=== PATIENT | female | born 1990 | race Caucasian/White ===

== ENCOUNTER → 2018-08-03 | Outpatient (CLI) | payer OTHER ==
[2018-08-03 10:06] LABS: Basophils % (A) 0 %; Eosinophils # (A) 0.1 k/uL (0-0.7); Eosinophils % (A) 1 %; HCT 44.5 % (34.0-46.0); HGB 14.9 gm/dL (11.4-16.0); Lymphocytes # (A) 1.5 k/uL (1.0-4.8); Lymphocytes % (A) 11 %; MCH 29.5 pg (25.0-35.0); MCHC 33.5 g/dL (31.0-37.0); MCV 88.2 fL (80.0-100.0); Mean Platelet Volume 7.3; Monocytes # (A) 0.8 k/uL (0-1.0); Monocytes % (A) 6 %; Neutrophils # (A) 11.1 k/uL (1.3-7.7); Neutrophils % (A) 81 %; Platelet Count 310 k/uL (150-450); RBC 5.05 m/uL (3.80-5.40); WBC 13.7 k/uL (3.8-10.6)
== END | disposition home or self-care (01) ==
LOC: LABPAT 08:42
PROVIDERS: ATTEND Obstetrics & Gynecology
DX: Z01.812 Encounter for preprocedural laboratory examination (principal); N94.6 Dysmenorrhea, unspecified; N92.0 Excessive and frequent menstruation with regular cycle
CPT/HCPCS: 85025

== ENCOUNTER 2018-08-13 07:42 | Day surgery (SDC) | payer BC, OTHER ==
[2018-08-06 10:16] VITALS: BMI 31.2
--- NOTE | 2018-08-09 13:52 | HP ---
HISTORY AND PHYSICAL This is a 28-year-old white female, 2, para 2-0-0-2, status post tubal ligation, who presents with frequent heavy crampy menses. Her periods required nonsteroidal anti-inflammatory use every 6 hours for the total duration of the menstrual flow, 5-7 days in duration. She is requesting NovaSure endometrial ablation for this disorder. REVIEW OF SYSTEMS: Otherwise negative. PAST MEDICAL HISTORY: Significant for high-grade changes on a Pap smear in November of 2006. PAST SURGICAL HISTORY: section 2015, LEEP procedure of the cervix for severe dysplasia in 2016, tubal ligation 2015. CURRENT MEDICATIONS: 1. Lexapro 10 mg daily. 2. Metformin 500 mg twice daily. ALLERGIES: None known. FAMILY HISTORY: Unremarkable, no known history of gynecologic cancers. REPRODUCTIVE HISTORY: Vaginal delivery by myself in 2012, breech presentation, low-transverse section 2015. SOCIAL HISTORY: Patient works at the [employer], she is single, she admits to social alcohol only, denies tobacco or drug use. On examination, this is a pleasant white female who is 5 foot 1 inch, 166 pounds, BMI 31, blood pressure 118/70. HEENT exam reveals no thyromegaly, good dentition, no obvious cervical lymphadenopathy. Breasts are bilaterally symmetric to inspection with no skin dimpling, nipple discharge, axillary adenopathy or other discernible lesions. The chest is clear to auscultation in all leon anteriorly and posteriorly. The cardiac exam reveals regular rate and rhythm with no murmur, click, or rub. The abdomen is soft and nontender, active bowel sounds, no organosplenomegaly. The extremities reveal no edema, good peripheral pulses, normal range of motion throughout. On pelvic examination, the cervix is multiparous, Pap smear is up to date and within normal limits. Uterus is small, anteverted, anteflexed, mobile, nontender. Adnexa are negative to palpation bilaterally. The rectal exam reveals good tone, no obvious lesions. IMPRESSION: Menorrhagia and dysmenorrhea, status post tubal ligation, patient requesting endometrial ablation. PLAN: I have discussed with the patient all risks, benefits, and alternatives of this procedure. The pamphlet has been given for her through review. Other options including hormonal cycling have been discussed and declined. All questions answered. We will proceed with surgery at [facility] on Monday, August 13, 2018. MMODL / IJN: [id number] /
[~2018-08-13 07:42] MED LIST: DEXAMETHASONE SOD PHOSPHATE 10 MG/ML 1 ML VIAL IV ONE; LACTATED RINGERS 1,000 ML IV SCH; LIDOCAINE 1% 20 ML VIAL (10MG/ML) FOR IV START INTRADERMA PRN; MIDAZOLAM 2 MG/2 ML VIAL IV PRN; ONDANSETRON 4 MG/2 ML VIAL IVP ONE; Pre Op ABX Message 1 EACH MISC MISCELLANE ONE; fentaNYL (PF) 50 MCG/ML 2 ML AMP IV PRN
[2018-08-13 08:12] VITALS: TEMP 97.4
[2018-08-13] MEDS ORDERED: PROPOFOL 10 MG/ML 20 ML VIAL IV ONE (08:58)
[2018-08-13] MEDS ORDERED: fentaNYL (PF) 50 MCG/ML 2 ML AMP ONE (08:58)
[2018-08-13] MEDS ORDERED: LIDOCAINE 1% INJ 10MG/ML (20 ML MDV) ONE (08:58)
[2018-08-13] MEDS ORDERED: MIDAZOLAM 2 MG/2 ML VIAL ONE (08:58)
[2018-08-13] MEDS ORDERED: KETOROLAC 30 MG/ML 1 ML VIAL ONE (08:58)
--- NOTE | 2018-08-13 09:30 | P.OP ---
Date of Procedure: 08/13/18 Preoperative Diagnosis: Menorrhagia, dysmenorrhea Postoperative Diagnosis: Same, normal-appearing endometrial cavity Procedure(s) Performed: Hysteroscopy, NovaSure endometrial ablation Anesthesia: IESHA Surgeon: Hollie Garcia Estimated Blood Loss (ml): 25 IV fluids (ml): 600 Urine output (ml): 50 Pathology: none sent Condition: stable Disposition: PACU Description of Procedure: Patient is brought to the operating suite where a general anesthetic is administered without difficulty. She's placed in the dorsal lithotomy position. The appropriate timeout was performed to assure proper patient and procedural identification, urine test negative. The cervix, perineal body, and lower abdominal terrazas are all prepped and draped in the usual sterile fashion. Bladder is drained for approximately 50 mL of clear yellow urine. Examination under anesthesia reveals a small anteverted uterus, negative adnexa bilaterally. Weighted speculum was placed into the vagina. Anterior lip of the cervix is grasped with a double-tooth tenaculum. Uterus sounds to a depth of 6 cm in the anteverted position. Cervix is gently and systematically dilated using Hanks dilators. Hysteroscope was introduced and the cavity is distended with sterile saline. The cavity was evaluated, noted to be devoid of polyps, tumors, septa, or defects. A moderate amount of proliferative-type appearing tissue was noted. Hysteroscope was removed. The NovaSure wand is placed and seated properly. Uterine depth of 5 cm, width of 3.1 centimeters is noted and calibrated. The machine is properly enabled. For 35 seconds with a power of 85 W the procedure is carried out. When the machine turned off, the wand is reduced and removed. Hysteroscope was once again placed and the cavity is noted to be uniformly blanched. All sponge needle and enhancement counts are correct. Cervix is clean and dry. Patient is brought back to the recovery room in very good condition with stable vital signs including 99% O2 saturation, pulse 74, blood pressure 130/61. Toradol is given prior to leaving the operative room.
[2018-08-13] MEDS: HYDROmorphone 1 MG/ML 1 ML SYRINGE IVP ONE ×2 (09:37→09:48)
[2018-08-13] MEDS ORDERED: SODIUM CHLORIDE 0.9% 1,000 ML IV ONE (10:09)
[2018-08-13 10:32] VITALS: RESP 18
[2018-08-13 11:15] VITALS: BP 128/85; PULSE 76
== END 2018-08-13 11:24 | disposition home or self-care (01) ==
LOC: OR 07:42
PROVIDERS: ATTEND Obstetrics & Gynecology
DX: N92.0 Excessive and frequent menstruation with regular cycle (principal); N94.6 Dysmenorrhea, unspecified; Z98.51 Tubal ligation status; Z79.84 Long term (current) use of oral hypoglycemic drugs; Z79.899 Other long term (current) drug therapy; Z79.1 Long term (current) use of non-steroidal anti-inflammatories (NSAID)
CPT/HCPCS: 81025; 58563; J2250; J1100; J2405; J2001; J3010; J1885; J1170; J2704

== ENCOUNTER → 2019-04-09 | Outpatient (CLI) | payer OTHER ==
[2019-04-09 11:14] LABS: Anion Gap 7 mmol/L; Blood Urea Nitrogen 13 mg/dL (7-17); Carbon Dioxide 25 mmol/L (22-30); Chloride 109 mmol/L (98-107); Glucose 83 mg/dL (74-99); Potassium 4.3 mmol/L (3.5-5.1); Sodium 141 mmol/L (137-145)
[2019-04-09 11:26] LABS: Basophils % (A) 1 %; Eosinophils # (A) 0.2 k/uL (0-0.7); Eosinophils % (A) 2 %; HCT 47.1 % (34.0-46.0); HGB 15.4 gm/dL (11.4-16.0); Lymphocytes # (A) 2.2 k/uL (1.0-4.8); Lymphocytes % (A) 28 %; MCH 28.8 pg (25.0-35.0); MCHC 32.6 g/dL (31.0-37.0); MCV 88.2 fL (80.0-100.0); Mean Platelet Volume 8.6; Monocytes # (A) 0.4 k/uL (0-1.0); Monocytes % (A) 4 %; Neutrophils # (A) 4.9 k/uL (1.3-7.7); Neutrophils % (A) 63 %; Platelet Count 318 k/uL (150-450); RBC 5.34 m/uL (3.80-5.40); WBC 7.8 k/uL (3.8-10.6)
== END ==
LOC: LABPAT 10:04
PROVIDERS: ATTEND Obstetrics & Gynecology
DX: Z01.812 Encounter for preprocedural laboratory examination (principal); N94.6 Dysmenorrhea, unspecified; N94.10 Unspecified dyspareunia
CPT/HCPCS: 36415; 80051; 82565; 82947; 84520; 85025; 87086

== ENCOUNTER 2019-04-15 06:47 | Observation (INO) | payer OTHER ==
[~2019-04-15 06:47] MED LIST changes: +HYDROmorphone 0.5 MG/0.5 ML SYRINGE IVP PRN; -LIDOCAINE 1% 20 ML VIAL (10MG/ML) FOR IV START INTRADERMA PRN; -MIDAZOLAM 2 MG/2 ML VIAL IV PRN; -Pre Op ABX Message 1 EACH MISC MISCELLANE ONE; +SCOPOLAMINE 1.5MG/72HR PATCH TRANSDERM ONE; +ceFAZolin IN SWFI 2 GM/20 ML SYRINGE IVP ONE; -fentaNYL (PF) 50 MCG/ML 2 ML AMP IV PRN
[2019-04-15] MEDS ORDERED: LIDOCAINE 1% 20 ML VIAL (10MG/ML) FOR IV START INTRADERMA ONE (07:28)
[2019-04-15] MEDS ORDERED: MIDAZOLAM (PF) 2 MG/2 ML VIAL IVP ONE (08:14)
[2019-04-15] MEDS ORDERED: MIDAZOLAM 2 MG/2 ML VIAL ONE (08:27)
[2019-04-15] MEDS ORDERED: KETOROLAC 30 MG/ML 1 ML VIAL ONE (08:27)
[2019-04-15] MEDS ORDERED: PROPOFOL 10 MG/ML 20 ML VIAL IV ONE (08:27)
[2019-04-15] MEDS ORDERED: GLYCOPYRROLATE 0.2 MG/ML 2 ML VIAL ONE (08:27)
[2019-04-15] MEDS ORDERED: SUCCINYLCHOLINE CHLORIDE 100 MG/5 ML SYR IV ONE (08:27)
[2019-04-15] MEDS ORDERED: LIDOCAINE 1% INJ 10MG/ML (20 ML MDV) ONE (08:27)
[2019-04-15] MEDS ORDERED: fentaNYL (PF) 50 MCG/ML 2 ML AMP ONE (08:27)
[2019-04-15] MEDS ORDERED: NEOSTIGMINE 1 MG/ML 10 ML VIAL ONE (08:27)
[2019-04-15] MEDS ORDERED: ROCURONIUM BROMIDE 10 MG/ML 10 ML VIAL IV ONE (08:27)
[2019-04-15] MEDS ORDERED: HYDROmorphone (PF) 1 MG/ML ONE (08:27)
[2019-04-15] MEDS ORDERED: VASOPRESSIN 20 UNIT/ML 1 ML VIAL IM ONE (08:57)
[2019-04-15] MEDS ORDERED: MORPHINE SULFATE 2 MG/ML SYRINGE IVP PRN (09:10)
[2019-04-15] MEDS ORDERED: NALOXONE 0.4 MG/ML 1 ML VIAL IV PRN (09:10)
[2019-04-15] MEDS ORDERED: SIMETHICONE 80 MG CHEWABLE PO PRN (09:44)
[2019-04-15] MEDS ORDERED: METOCLOPRAMIDE 5 MG/ML 2 ML VIAL IVP PRN (09:44)
[2019-04-15] MEDS ORDERED: ZOLPIDEM 5 MG TAB PO PRN (09:44)
[2019-04-15] MEDS ORDERED: Acetaminophen-Codeine 300-30mg TAB PO PRN (09:44)
[2019-04-15] MEDS ORDERED: diphenhydrAMINE 50 MG/ML 1 ML VIAL IVP PRN (09:44)
[2019-04-15] MEDS ORDERED: IBUPROFEN 600 MG TAB PO PRN (09:44)
--- NOTE | 2019-04-15 09:44 | P.OP ---
Date of Procedure: 04/15/19 Preoperative Diagnosis: Dysmenorrhea, dyspareunia, suspect adenomyosis. Postoperative Diagnosis: Same, normal-appearing ovaries bilaterally. Procedure(s) Performed: Vaginal hysterectomy Anesthesia: IESHA Surgeon: Hollie Garcia [employer] Waste [employer] Specialist #1: Tricia Clemente Estimated Blood Loss (ml): 50 IV fluids (ml): 800 Urine output (ml): 250 Pathology: other (Cervix and uterus) Condition: stable Disposition: PACU Indications for Procedure: Severe dysmenorrhea, dyspareunia, status post ablation. Suspect adenomyosis. Description of Procedure: Patient is brought to the operating suite where a spinal with Duramorph is placed. She is positioned in the dorsal lithotomy position after general anesthetic is also administered. Antibiotics are given. Urine hCG is negative. The appropriate timeout was performed to assure proper patient and procedural identification. Cervix, vagina, perineal bodies are all prepped and draped in the usual sterile fashion. Weighted speculum was placed into the vagina. Bladder is drained for 200 mL of clear yellow urine. Anterior lip of the cervix is grasped with a double-tooth tenaculum. Cervix is injected circumferentially with a dilute Pitressin solution. A moapa blade scalpel is used and the cervix is incised circumferentially with a V positioning at 6:00. A sponge rolled finger is used to sweep the mucosa from the underlying fascial plane. Peritoneum is entered at 6:00, suture tied with 2-0 Vicryl. Weighted speculum was then placed deep into the peritoneal cavity. Uterosacral ligaments are identified, clamped cut and suture ligated. They are held with hemostats laterally for vaginal cuff closure. At all times the vaginal mucosa is swept well from the operative field to avoid bladder and/or ureteral injury. Uterine vasculature is identified, clamped cut and suture ligated. Please note that 0 Vicryl sutures used for the remaining portion of the procedure. 2 additional pedicles are taken superior to the vessels, these are clamped cut and suture ligated. Peritoneum is now entered at 12:00. The uterus is "walked out" posteriorly. Viridiana clamps are used across the final pedicles. The cervix and uterus are sent to pathology for evaluation. 0 Vicryl sutures used to tie, flashed, and retied a pedicles for excellent hemostasis. Sponge stick is then use to visualize the ovaries, both of which appear healthy and normal, and therefore are left in situ per the patient's wishes. The speculum is then replaced to the shallow billed speculum. Peritoneum is closed in a pursestring fashion, with care to avoid any bowel injury. The previously placed uterosacral cardinal ligaments are now brought across to incorporate the opposite ligament as well as vaginal mucosa to close the vaginal cuff. 2 additional [id number] sutures are used for final cuff closure. Hemostasis is excellent. The vagina is packed with one-inch iodophor gauze. The bladder is noted to be draining clear urine, an additional 50 mL's. All sponge needle and enhancement counts are correct at the end of the procedure. Patient is brought back to the recovery room in stable condition with a blood pressure of 102/52, pulse 67, 98% O2 saturation.
[2019-04-15] MEDS ORDERED: LACTATED RINGERS 1,000 ML IV ONE ×2 (10:00)
[2019-04-15] MEDS ORDERED: diphenhydrAMINE 50 MG/ML 1 ML VIAL IVP ONE (10:14)
[2019-04-15 11:34] VITALS: BMI 31.2
[2019-04-15] MEDS: KETOROLAC 30 MG/ML 1 ML VIAL IVP PRN ×2 (16:16→22:10)
[2019-04-16 04:27] VITALS: RESP 16; TEMP 98.2
[2019-04-16] MEDS: KETOROLAC 30 MG/ML 1 ML VIAL IVP PRN (04:44)
--- NOTE | 2019-04-16 06:29 | P.PN ---
Progress Note - Text 04/09 605am 28 yr old female s/p vaginal hystrectomy by Dr Garcia. pt had a general anesthetic with spinal duramorph for post op pain control.She was seen this morning ,vas0, mild pruritis which was treated with benadryl.
--- NOTE | 2019-04-16 07:01 | P.DS ---
Providers Date of admission: 04/15/19 23:28 Expected date of discharge: 04/16/19 Attending physician: Hollie Garcia Primary care physician: [facility] Course: This is a 28-year-old female who presented with severe cyclic dysmenorrhea, and dyspareunia since her endometrial ablation was performed. The presumptive diagnosis was that of adenomyosis, and patient elected to proceed with vaginal hysterectomy. Please see my dictated history and physical for details. She was admitted and underwent vaginal hysterectomy under my care yesterday. She did well intraoperatively. The ovaries appeared normal to inspection and therefore were left in situ per her wishes. Please see my dictated operative note for details. Irwin catheter and vaginal packing were placed. The vaginal packing and Irwin catheter were removed last night per her wishes. She has been up and ambulating, voiding, passing flatus, and feels very well. She has no complaints of pain. She did receive a spinal with Duramorph prior to her surgery. There is no vaginal bleeding. Abdomen is soft and nontender, active bowel sounds. No CVA tenderness. Extremities are negative. Chest is clear. Patient is judged to be in very good condition for discharge home. She will follow-up with me in the office in 2 weeks for her postoperative check. I reminded her no intercourse, tampons or douching. She will use Advil or Aleve [id number], or ibuprofen as needed for pain. She will call me with any vaginal bleeding, any issues with voiding or defecation, with any pain not alleviated by [id number] products, or indeed with any concerns. She is reminded no heavy lifting, I have reviewed restrictions for her activities in detail. Patient Condition at Discharge: Good Plan - Discharge Summary Discharge Rx Participant: No New Discharge Prescriptions: No Action Ibuprofen [Motrin Ib] 400 mg PO Q4HR PRN PRN Reason: Pain Venlafaxine HCl [Effexor] 37.5 mg PO QAM ALPRAZolam [Xanax] 0.25 mg PO HS PRN PRN Reason: Anxiety Discharge Medication List Ibuprofen [Motrin Ib] 400 mg PO Q4HR PRN 08/06/18 [History] ALPRAZolam [Xanax] 0.25 mg PO HS PRN 04/09/19 [History] Venlafaxine HCl [Effexor] 37.5 mg PO QAM 04/09/19 [History] Follow up Appointment(s)/Referral(s): Hollie Garcia MD [STAFF PHYSICIAN] - 2 Weeks
[2019-04-16] MEDS ORDERED: KETOROLAC 30 MG/ML 1 ML VIAL ONE (08:27)
[2019-04-16] MEDS ORDERED: GLYCOPYRROLATE 0.2 MG/ML 2 ML VIAL ONE (08:27)
[2019-04-16] MEDS ORDERED: MIDAZOLAM 2 MG/2 ML VIAL ONE (08:27)
[2019-04-16] MEDS ORDERED: ROCURONIUM BROMIDE 10 MG/ML 10 ML VIAL IV ONE (08:27)
[2019-04-16] MEDS ORDERED: LIDOCAINE 1% INJ 10MG/ML (20 ML MDV) ONE (08:27)
[2019-04-16] MEDS ORDERED: fentaNYL (PF) 50 MCG/ML 2 ML AMP ONE (08:27)
[2019-04-16] MEDS ORDERED: PROPOFOL 10 MG/ML 20 ML VIAL IV ONE (08:27)
[2019-04-16] MEDS ORDERED: SUCCINYLCHOLINE CHLORIDE 100 MG/5 ML SYR IV ONE (08:27)
[2019-04-16] MEDS ORDERED: HYDROmorphone (PF) 1 MG/ML ONE (08:27)
[2019-04-16] MEDS ORDERED: NEOSTIGMINE 1 MG/ML 10 ML VIAL ONE (08:27)
[2019-04-16 08:51] VITALS: BP 125/87; PULSE 82
[2019-04-16] MEDS ORDERED: ACETAMINOPHEN TAB 325 MG TAB PO PRN (09:45)
== END 2019-04-16 09:59 | disposition home or self-care (01) ==
LOC: OR 06:47 → 4FBP 10:05 → OR 23:36
PROVIDERS: ADMIT Obstetrics & Gynecology; ATTEND Obstetrics & Gynecology
DX: N94.6 Dysmenorrhea, unspecified (principal); N94.10 Unspecified dyspareunia; L29.9 Pruritus, unspecified; F41.9 Anxiety disorder, unspecified; Z79.1 Long term (current) use of non-steroidal anti-inflammatories (NSAID); Z79.899 Other long term (current) drug therapy
CPT/HCPCS: 81025; 86850; 86900; 86901; 88307; 94760; 96374

== ENCOUNTER 2020-06-06 20:38 | Emergency (ER) | payer OTHER ==
[2020-06-06 20:49] VITALS: TEMP 98.4
--- NOTE | 2020-06-06 21:18 | XR ---
EXAMINATION TYPE: XR finger RT DATE OF EXAM: 06/06/2020 COMPARISON: NONE HISTORY: Trauma. Pain. TECHNIQUE: 3 views FINDINGS: There is 3 mm intra-articular chip fracture of the medial base of the distal phalanx of the ring finger right hand. There is no dislocation. Joint spaces are normal. IMPRESSION: Intra-articular chip fracture of the ring finger distal phalanx as above.
[2020-06-06] MEDS ORDERED: CEPHALEXIN 500MG STARTER PACK 4 CAP BTL PO STA (21:26)
[2020-06-06] MEDS ORDERED: ALPRAZolam 0.25 MG TAB PO STA (21:29)
[2020-06-06] MEDS ORDERED: LIDOCAINE 1% INJ 10MG/ML (20 ML MDV) SQ ONE (21:29)
[2020-06-06] MEDS ORDERED: BACITRACIN OINT 1 EACH PACKET TOPICAL ONE (21:29)
--- NOTE | 2020-06-06 21:34 | ED ---
Wound/Laceration HPI - General Chief Complaint: Wound/Laceration Stated Complaint: R Ring Finger Injury Time Seen by Provider: 06/06/20 20:45 Source: patient Mode of arrival: ambulatory Limitations: no limitations - History of Present Illness Initial Comments: 30-year-old female patient presents to the emergency department today for evaluation of injury to the right ring finger. Patient states that she was putting a dog out on the chain when the dog took off running causing the chain to wrap around her finger. She states it injured the end of her finger. There is a laceration. She denies numbness or tingling. Denies any significant pain. He denies any other injuries. She is unsure when her last tetanus vaccine was given. Patient denies any headache, neck pain, back pain, chest pain, shortness of breath, dizziness, weakness, abdominal pain, nausea, vomiting, or difficulties with bowel movements or urination. - Related Data Home Medications Medication Instructions Recorded Confirmed Ibuprofen [Motrin Ib] 400 mg PO Q4HR PRN 08/06/18 04/15/19 ALPRAZolam [Xanax] 0.25 mg PO HS PRN 04/09/19 04/15/19 Venlafaxine HCl [Effexor] 37.5 mg PO QAM 04/09/19 04/15/19 Previous Rx's Medication Instructions Recorded Cephalexin [Keflex] 500 mg PO BID #10 cap 06/06/20 Ibuprofen [Motrin] 600 mg PO Q8HR PRN #30 tab 06/06/20 Allergies Allergy/AdvReac Type Severity Reaction Status Date / Time No Known Allergies Allergy Verified 06/06/20 20:46 Review of Systems ROS Statement: Those systems with pertinent positive or pertinent negative responses have been documented in the HPI. ROS Other: All systems not noted in ROS Statement are negative. Past Medical History Past Medical History: No Reported History Additional Past Medical History / Comment(s): ADENOMYOSIS. History of Any Multi-Drug Resistant Organisms: None Reported Past Surgical History: Section, Hysterectomy, Uterine Ablation Additional Past Surgical History / Comment(s): D & C Past Anesthesia/Blood Transfusion Reactions: Postoperative Nausea & Vomiting (PONV) Past Psychological History: Anxiety Smoking Status: Never smoker Past Alcohol Use History: None Reported Past Drug Use History: None Reported - Past Family History Mother History Unknown: Yes Family Medical History: No Reported History General Exam Limitations: no limitations General appearance: alert, in no apparent distress, other (physical well- developed, well-nourished adult female patient in no acute distress. ) Respiratory exam: Present: normal lung sounds bilaterally. Absent: respiratory distress, wheezes, rales, rhonchi, stridor Cardiovascular Exam: Present: regular rate, normal rhythm, normal heart sounds. Absent: systolic murmur, diastolic murmur, rubs, gallop, clicks Extremities exam: Present: full ROM, normal capillary refill, other (There is laceration at the distal tip of the fourth digit there is nail involvement. Skin is otherwise pink, warm, dry. Cap refills less than 3 seconds. Radial pulses 2+ and equal bilaterally.). Absent: normal inspection, tenderness, pedal edema, joint swelling, calf tenderness Neurological exam: Present: alert, oriented X3, CN II-XII intact Psychiatric exam: Present: normal affect, normal mood Skin exam: Present: warm, dry, intact, normal color. Absent: rash Course Vital Signs 06/06/20 20:46 Temperature 98.4 F Pulse Rate 98 Respiratory 16 Rate Blood Pressure 160/104 O2 Sat by Pulse 99 Oximetry Procedures - Laceration Laceration #1 Consent Obtained: verbal consent Indication: laceration Site: hand (Right ring finger) Size (cm): 3 Description: linear Depth: simple, single layer Anesthetic Used: lidocaine 1% Anesthesia Technique: nerve block Amount (mls): 6 Pre-repair: irrigated extensively Type of Sutures: nylon Size of Sutures: 5-0 Number of Sutures: 5 Technique: simple, interrupted Patient Tolerated Procedure: well, no complications Medical Decision Making - Medical Decision Making 30-year-old female patient presents to the emergency department today for evaluation of laceration to the right ring finger. Physical examination did reveal laceration to the pad of the right ring finger that extended around to the lateral nail fold. X-ray was obtained and did show a chip fracture at the proximal interphalangeal joint. Patient was given antibiotics. She refuses tetanus vaccine, we did discuss risk of tetanus and with the disease and heels, she verbalizes understanding and continued to refuse. I did repair the wound as documented. We did discuss wound care and signs or symptoms of infection. She is instructed to return in 7 days to have stitches removed. She is instructed to follow up with clinical studies specialist for further evaluation is as possible. Return parameters were discussed in detail. She verbalizes understanding and agrees with this plan. - Radiology Data Radiology results: report reviewed, image reviewed 3 views of the right ring finger are obtained. Report was reviewed in its entirety. Impression by Dr. Germain shows intra-articular chip fracture of the ring finger distal phalanx of the left. Disposition Clinical Impression: Fracture of finger, distal phalanx, right, open, Laceration of right ring finger Disposition: HOME SELF-CARE Condition: Good Instructions (If sedation given, give patient instructions): Care For Your Stitches (ED), Laceration (ED) Additional Instructions: Keep wound clean and dry. Cleanse twice daily with warm water and antibacterial soap. Keep covered when in public. Use splint for the next 2 weeks. Follow up with orthopedic specialty for further evaluation as soon as possible. Return in 7 days to have the stitches removed. Return to the emergency department immediately for any new, worsening, or concerning symptoms. Prescriptions: Cephalexin [Keflex] 500 mg PO BID #10 cap Ibuprofen [Motrin] 600 mg PO Q8HR PRN #30 tab PRN Reason: Pain Is patient prescribed a controlled substance at d/c from ED?: No Referrals: Pura Cr MD [Primary Care Provider] - 1-2 days Armani Vasquez DO [Doctor of Osteopathic Medicine] - 1-2 days Time of Disposition: 23:00
[2020-06-06] MEDS ORDERED: ACET/COD 300 MG/30 MG STARTER PACK 6 TAB BTL PO STA (23:06)
[2020-06-06 23:11] VITALS: BP 125/79; PULSE 81; RESP 18
== END 2020-06-06 23:10 | disposition home or self-care (01) ==
LOC: EC 20:38
DX: S62.634B Displaced fracture of distal phalanx of right ring finger, initial encounter for open fracture (principal); F41.9 Anxiety disorder, unspecified; Z79.899 Other long term (current) drug therapy; W26.8XXA Contact with other sharp object(s), not elsewhere classified, initial encounter; Y92.009 Unspecified place in unspecified non-institutional (private) residence as the place of occurrence of the external cause
CPT/HCPCS: 73140; 99283; 12002; J2001

== ENCOUNTER 2025-02-18 16:01 | Inpatient (IN) | payer BC, OTHER ==
--- NOTE | 2025-02-18 17:12 | ED ---
General Adult HPI - General Chief complaint: Neuro Symptoms/Deficit Stated complaint: Blurry Vision/Numbness Time Seen by Provider: 02/18/25 16:13 Source: patient Mode of arrival: ambulatory Limitations: no limitations - History of Present Illness Initial comments: Patient is a 34-year-old female with a history of anxiety and depression presenting today for headache. Patient states that last night she began having tingling around her lips and lower face in her fingertips and felt like her vision became blurred. She went to bed and woke up with a migraine-like headache which is described as pressure-like pain around her head and down the back of her neck. She states she does not have a history of migraines. She woke up with a headache this morning so is unsure if it began gradually or suddenly. She states that the neurologic symptoms began to improve until this afternoon around 2:00 when they returned. States she has been taking for 100 mg of ibuprofen every 4 hours last dose was at 2 PM. This has not improved her headache much. She denies history of prior strokes. She denies any chest pain or shortness of breath, endorses nausea but no vomiting. Denies abdominal pain, lower extremity swelling. She has had a prior hysterectomy so no chance of . She is not on blood thinners. - Related Data Home Medications Medication Instructions Recorded Confirmed No Known Home Medications 02/18/25 02/18/25 Allergies Allergy/AdvReac Type Severity Reaction Status Date / Time No Known Allergies Allergy Verified 02/18/25 17:29 Review of Systems ROS Statement: Those systems with pertinent positive or pertinent negative responses have been documented in the HPI. ROS Other: All systems not noted in ROS Statement are negative. Past Medical History Past Medical History: No Reported History Additional Past Medical History / Comment(s): ADENOMYOSIS. History of Any Multi-Drug Resistant Organisms: None Reported Past Surgical History: Section, Hysterectomy, Uterine Ablation Additional Past Surgical History / Comment(s): D & C Past Anesthesia/Blood Transfusion Reactions: Postoperative Nausea & Vomiting (PONV) Past Psychological History: Anxiety Smoking Status: Never smoker Past Alcohol Use History: None Reported Past Drug Use History: None Reported - Past Family History Mother History Unknown: Yes Family Medical History: No Reported History General Exam - General Exam Comments Initial Comments: PE: CONSTITUTIONAL: No apparent distress, well appearing SKIN: Warm, dry, no jaundice, hives or petechiae EYES: Pupils are equally round, extraocular movements intact without nystagmus, clear conjunctiva, non-icteric sclera HENT: Normocephalic, atraumatic, moist mucus membranes, oropharynx clear without exudates NECK: , Full range of motion, normal appearance PULMONARY: Clear to auscultation without wheezes, rhonchi, or rales, normal excursion, no accessory muscle use and no stridor CARDIOVASCULAR: Regular rate, rhythm, normal S1 and S2. No appreciated murmurs, rubs or gallops. Strong radial pulses with intact distal perfusion. No lower extremity edema GASTROINTESTINAL: Soft, active bowel sounds throughout, non-tender, non- distended, no palpable masses, no rebound or guarding. No hepatosplenomegaly GENITOURINARY: MUSCULOSKELETAL: Extremities have no gross deformity, no edema, redness, or swelling. NEUROLOGIC:_a/o x 3, GCS 15, normal mentation and speech. Moves all extremities x 4 without motor or sensory deficit. Cranial nerves: II (visual leon without defects), III, IV and (extraocular movements are intact, pupils are equal with normal reaction to light), V (intact facial sensation and jaw opening), VII (no facial droop), IX and X (normal palate movement, midline uvula, normal voice), XI (symmetrical shoulder shrug and lateral head rotation against resistance), XII (midline tongue protrusion). Motor strength is 5/5 in all extremities. No abnormal movements. Normal muscle tone. Sensation to light touch is intact bilaterally. No cerebellar signs ([id number], byip-nd-ycqd are normal) PSYCHIATRIC:_normal mood and affect, thought process is clear and linear Limitations: no limitations Course Vital Signs 02/18/25 02/18/25 02/18/25 16:05 17:41 20:25 Temperature 98.6 F Pulse Rate 123 H 94 88 Respiratory 22 18 20 Rate Blood Pressure 205/122 195/126 185/111 O2 Sat by Pulse 99 100 99 Oximetry 02/18/25 02/18/25 02/19/25 22:26 23:02 00:27 Temperature 97.8 F Pulse Rate 77 78 80 Respiratory 18 18 16 Rate Blood Pressure 175/111 144/90 141/83 O2 Sat by Pulse 98 96 96 Oximetry 04/16/25 01:29 Temperature 97.4 F L Pulse Rate 81 Respiratory 16 Rate Blood Pressure 136/83 O2 Sat by Pulse 96 Oximetry EKG Findings - EKG Comments: EKG Findings:: Sinus tachycardia rate 102 bpm intervals within acceptable limits, borderline left axis deviation, T wave inversions lead III, aVR, no Q waves present, no significant ST elevations or depressions, no arrhythmia Medical Decision Making - Medical Decision Making Was pt. sent in by a medical professional or institution (, PA, SITE SPECIALIST, urgent care, hospital, or intermediate...) When possible be specific @ -No Did you speak to anyone other than the patient for history (EMS, parent, family, police, friend...)? What history was obtained from this source @ -No Did you review nursing and triage notes (agree or disagree)? Why? @ -[I reviewed, disagree with nursing triage notes, states the patient's symptoms started at 7 PM, her symptoms started at 7 PM last night Were old charts reviewed (outside hosp., previous admission, EMS record, old EKG, old radiological studies, urgent care reports/EKG's, intermediate records)? Report findings @ -Medical records reviewed-of note patient was here for similar presentation, o n 10/18/2015, at that time CT brain showed no acute process and she was discharged home Differential Diagnosis (chest pain, altered mental status, abdominal pain women, abdominal pain men, vaginal bleeding, weakness, fever, dyspnea, syncope, headache, dizziness, GI bleed, back pain, seizure, CVA, palpatations, mental health, musculoskeletal)? @Differential Headache: Migraine, tension, cluster, carbon monoxide, central venous thrombosis, pension karma temporal arteritis, acute closure glaucoma, intercranial hemorrhage, mastoiditis, sinusitis, head injury, this is not meant to be an all-inclusive list. EKG interpreted by me (3pts min.). @ -As above X-rays interpreted by me (1pt min.). Personally reviewed chest x-ray see no evidence of cardiomegaly, consolidations or pleural effusions I agree 3.interpretation CT interpreted by me (1pt min.). I personally viewed CT brain CTA, I see no evidence of hemorrhage, aneurysm, mass effect or other acute process I agree with radiologist interpretation U/S interpreted by me (1pt. min.). @ -None done What testing was considered but not performed or refused? (CT, X-rays, U/S, labs)? Why? @ -None What meds were considered but not given or refused? Why? @ -None Did you discuss the management of the patient with other professionals (professionals i.e. , PA, SITE SPECIALIST, lab, RT, psych nurse, social science analyst, purse seining hand, teacher, chief revenue officer, pillowcase cleaner)? Give summary @ -No Was smoking cessation discussed for >3mins.? @ -No Was critical care preformed (if so, how long)? @Yes 35 minutes Were there social determinants of health that impacted care today? How? (Homelessness, low income, unemployed, alcoholism, drug addiction, transportation, low edu. Level, literacy, decrease access to med. care, assisted, rehab)? @ -No Was there de-escalation of care discussed even if they declined (Discuss DNR or withdrawal of care, Hospice)? @ -No What co-morbidities impacted this encounter? (DM, HTN, Smoking, COPD, CAD, Cancer, CVA, ARF, Chemo, Hep., AIDS, mental health diagnosis, sleep apnea, morbid obesity)? @ -None Was patient admitted / discharged? Hospital course, mention meds given and route, prescriptions, significant lab abnormalities, going to OR and other pertinent info. @ Admission- Patient is a pleasant 34 y/o female PMH anxiety, depression pr esenting for headache with lip tingling, fingertip tingling, began last night. Patient is significantly hypertensive on arrival with BP 205/122, heart rate 123 bpm. On my assessment she has no focal neurologic deficits is well-appearing in no acute distress. NIH of 0. Differential diagnoses above. Will obtain CT brain, CTA head and neck, comprehensive labs, patient be given Reglan, Benadryl, Tylenol and Valium. testing not ordered as patient has had previous hysterectomy. Will continue to monitor blood pressure and treat with antihypertensives if does not improve with pain control. CT brain CTA negative for acute process. Patient is greater than 6 hours out from the onset of her headache however with CTA negative I do not feel LP indicated at this point to further rule out intracranial hemorrhage. Pt states tingling has resolved and HARDY has improved from 8/10 to 4-5/10. Labs overall reassuring. She does remain hypertensive with BP~180/112. Due to persistent symptoms and significant HTN, will treat with IV labetolol and admit. Pt agreeable with POC. Repeat BP 165/112. Add another 10 mg IV labetolol. Case discussed with [facility], kindly accepts pt for admission. Undiagnosed new problem with uncertain prognosis? @ -No Drug Therapy requiring intensive monitoring for toxicity (Heparin, Nitro, Insulin, Cardizem)? @ -No Were any procedures done? @ -No Diagnosis/symptom? @ Cephalgia, Hypertensive Urgency Acute, or Chronic, or Acute on Chronic? @ acute Uncomplicated (without systemic symptoms) or Complicated (systemic symptoms)? @ complicated Side effects of treatment? @ -No Exacerbation, Progression, or Severe Exacerbation? @ -No Poses a threat to life or bodily function? How? (Chest pain, USA, CT, pneumonia, PE, COPD, DKA, ARF, appy, cholecystitis, CVA, Diverticulitis, Homicidal, Suicidal, threat to staff... and all critical care pts) @Possibly if left unaddressed could progress to hypertensive emergency - Lab Data Result diagrams: 02/20/25 05:14 02/18/25 17:25 Lab Results 02/18/25 02/18/25 02/18/25 Range/Units 17:25 17:25 17:25 WBC 10.16 H (4.50-10.00) 10*3/uL RBC 5.52 H (4.10-5.20) 10*6/uL Hgb 16.6 H (12.0-15.0) g/dL Hct 47.2 H (37.2-46.3) % MCV 85.5 (80.0-97.0) fL MCH 30.1 (27.0-32.0) pg MCHC 35.2 (32.0-37.0) g/dL Plt Count 378 (140-440) 10*3/uL MPV 10.7 (9.5-12.2) fL Immature Gran % (Auto) 0.3 % Neutrophils % 63.8 % Lymphocytes % 22.8 % Monocytes % 7.4 % Eosinophils % 4.6 % Basophils % 1.1 % Immature Gran # 0.03 (0.00-0.04) 10*3/uL Neutrophils # 6.48 (1.80-7.70) 10*3/uL Lymphocytes # 2.32 (0.90-5.00) 10*3/uL Monocytes # 0.75 (0.20-1.00) 10*3/uL Eosinophils # 0.47 H (0.04-0.35) 10*3/uL Basophils # 0.11 H (0.00-0.10) 10*3/uL Sodium 137 (137-145) mmol/L Potassium 4.1 (3.5-5.1) mmol/L Chloride 104 (98-107) mmol/L Carbon Dioxide 24 (22-30) mmol/L Anion Gap 9 mmol/L BUN 12 (7-17) mg/dL Creatinine 0.76 (0.52-1.04) mg/dL Est GFR (CKD-EPI)AfAm >90 (>60 ml/min/1.73 sqM) Est GFR (CKD-EPI)NonAf >90 (>60 ml/min/1.73 sqM) Glucose 99 (74-99) mg/dL Calcium 9.6 (8.4-10.2) mg/dL Total Bilirubin 1.3 (0.2-1.3) mg/dL AST 27 (14-36) U/L ALT 32 (4-34) U/L Alkaline Phosphatase 81 (38-126) U/L Troponin I (0.000-0.034) ng/mL NT-Pro-B Natriuret Pep 315 pg/mL Total Protein 7.9 (6.3-8.2) g/dL Albumin 4.5 (3.5-5.0) g/dL Urine Color Colorless Urine Appearance Clear (Clear) Urine pH 6.5 (5.0-8.0) Ur Specific [place] 1.009 (1.001-1.035) Urine Protein Negative (Negative) Urine Glucose (UA) Negative (Negative) Urine Ketones Negative (Negative) Urine Blood Negative (Negative) Urine Nitrite Negative (Negative) Urine Bilirubin Negative (Negative) Urine Urobilinogen <2.0 (<2.0) mg/dL Ur Leukocyte Esterase Negative (Negative) 02/18/25 Range/Units 17:25 WBC (4.50-10.00) 10*3/uL RBC (4.10-5.20) 10*6/uL Hgb (12.0-15.0) g/dL Hct (37.2-46.3) % MCV (80.0-97.0) fL MCH (27.0-32.0) pg MCHC (32.0-37.0) g/dL Plt Count (140-440) 10*3/uL MPV (9.5-12.2) fL Immature Gran % (Auto) % Neutrophils % % Lymphocytes % % Monocytes % % Eosinophils % % Basophils % % Immature Gran # (0.00-0.04) 10*3/uL Neutrophils # (1.80-7.70) 10*3/uL Lymphocytes # (0.90-5.00) 10*3/uL Monocytes # (0.20-1.00) 10*3/uL Eosinophils # (0.04-0.35) 10*3/uL Basophils # (0.00-0.10) 10*3/uL Sodium (137-145) mmol/L Potassium (3.5-5.1) mmol/L Chloride (98-107) mmol/L Carbon Dioxide (22-30) mmol/L Anion Gap mmol/L BUN (7-17) mg/dL Creatinine (0.52-1.04) mg/dL Est GFR (CKD-EPI)AfAm (>60 ml/min/1.73 sqM) Est GFR (CKD-EPI)NonAf (>60 ml/min/1.73 sqM) Glucose (74-99) mg/dL Calcium (8.4-10.2) mg/dL Total Bilirubin (0.2-1.3) mg/dL AST (14-36) U/L ALT (4-34) U/L Alkaline Phosphatase (38-126) U/L Troponin I <0.012 (0.000-0.034) ng/mL NT-Pro-B Natriuret Pep pg/mL Total Protein (6.3-8.2) g/dL Albumin (3.5-5.0) g/dL Urine Color Urine Appearance (Clear) Urine pH (5.0-8.0) Ur Specific [place] (1.001-1.035) Urine Protein (Negative) Urine Glucose (UA) (Negative) Urine Ketones (Negative) Urine Blood (Negative) Urine Nitrite (Negative) Urine Bilirubin (Negative) Urine Urobilinogen (<2.0) mg/dL Ur Leukocyte Esterase (Negative) Disposition Clinical Impression: Cephalalgia, Hypertensive urgency Disposition: ADMITTED IP TO THIS HOSP Condition: Stable
[2025-02-18] MEDS: SODIUM CHLORIDE 0.9% 500 ML 500 ML IV STA (17:26)
[2025-02-18] MEDS: diphenhydrAMINE 50 MG/ML 1 ML VIAL IVP STA (17:31)
[2025-02-18] MEDS: METOCLOPRAMIDE 5 MG/ML 2 ML VIAL IVP STA (17:33)
[2025-02-18] MEDS: MAGNESIUM SULFATE-D5W PMX 1 GM in DEXTROSE/WATER 1 100ML.BAG IVPB ONE (17:36)
[2025-02-18] MEDS: ACETAMINOPHEN TAB 500 MG TAB PO STA (17:38)
[2025-02-18 17:50] LABS: Basophils # (A) 0.11 10*3/uL (0.00-0.10); Basophils % (A) 1.1 %; Eosinophils # (A) 0.47 10*3/uL (0.04-0.35); Eosinophils % (A) 4.6 %; HCT 47.2 % (37.2-46.3); HGB 16.6 g/dL (12.0-15.0); Lymphocytes # (A) 2.32 10*3/uL (0.90-5.00); Lymphocytes % (A) 22.8 %; MCH 30.1 pg (27.0-32.0); MCHC 35.2 g/dL (32.0-37.0); MCV 85.5 fL (80.0-97.0); Mean Platelet Volume 10.7 fL (9.5-12.2); Monocytes # (A) 0.75 10*3/uL (0.20-1.00); Monocytes % (A) 7.4 %; Neutrophils # (A) 6.48 10*3/uL (1.80-7.70); Neutrophils % (A) 63.8 %; Platelet Count 378 10*3/uL (140-440); RBC 5.52 10*6/uL (4.10-5.20); RDW 12.4 % (11.5-14.5); WBC 10.16 10*3/uL (4.50-10.00)
[2025-02-18 17:57] LABS: Appearance,Urine Clear (Clear); Bilirubin,Urine Negative (Negative); Blood,Urine Negative (Negative); Color,Urine Colorless; Glucose,Urine (UA) Negative (Negative); Ketones,Urine Negative (Negative); Leukocyte Esterase,Urine Negative (Negative); Nitrite,Urine Negative (Negative); PH, Urine 6.5 (5.0-8.0); Protein,Urine Negative (Negative); Specific Gravity,Urine 1.009 (1.001-1.035); Urobilinogen,Urine <2.0 mg/dL (<2.0)
[2025-02-18 18:13] LABS: ALT 32 U/L (4-34); AST 27 U/L (14-36); African American GFR (CKD) >90 (>60 ml/min/1.73 sqM); Albumin 4.5 g/dL (3.5-5.0); Alkaline Phosphatase 81 U/L (38-126); Anion Gap 9 mmol/L; Blood Urea Nitrogen 12 mg/dL (7-17); Calcium 9.6 mg/dL (8.4-10.2); Carbon Dioxide 24 mmol/L (22-30); Chloride 104 mmol/L (98-107); Glucose 99 mg/dL (74-99); Non-African American GFR(CKD) >90 (>60 ml/min/1.73 sqM); Potassium 4.1 mmol/L (3.5-5.1); Sodium 137 mmol/L (137-145); Total Bilirubin 1.3 mg/dL (0.2-1.3); Total Protein 7.9 g/dL (6.3-8.2)
[2025-02-18 18:21] LABS: NT-Pro-B-Type Natriuretic Pept 315 pg/mL
--- NOTE | 2025-02-18 18:24 | CT ---
EXAMINATION TYPE: CT brain wo con DATE OF EXAM: 02/18/2025 6:03 PM COMPARISON: Prior CT study dated 11/04/2015.. CLINICAL INDICATION: Female, 34 years old with history of Headache, Headache, lips tingling, neck blake n. TECHNIQUE: Brain: Axial CT images of the brain were obtained with coronal and sagittal reformats created and rev iewed. Contrast used: None. Oral contrast used: None. CT DLP: 999.4 mGycm, Automated exposure control for dose reduction was used. FINDINGS: Brain: Extra-axial spaces: No abnormal extra-axial fluid collections. Ventricular system: Within normal limits Cerebral parenchyma: No acute intraparenchymal hemorrhage or mass effect. The wahl-white junction is well differentiated. Cerebellum: Unremarkable. Mass effect: No evidence of midline shift. Intracranial vasculature: unremarkable Soft tissues: Normal. Calvarium/osseous structures: No depressed skull fracture. Paranasal sinuses and mastoid air cells: Mild scattered paranasal sinus disease. Visualized orbits: Orbital contents are intact. IMPRESSION: No acute intracranial process. [facility], , 02/18/2025 6:22 PM
--- NOTE | 2025-02-18 18:30 | CT ---
EXAMINATION TYPE: CT angio head neck DATE OF EXAM: 02/18/2025 6:18 PM COMPARISON: None.. CLINICAL INDICATION: Female, 34 years old with history of Headache, lips tingling, neck pain; PHH, He adache, lips tingling, neck pain TECHNIQUE: Axially acquired helical CT angiogram of the head and neck was obtained with contrast. Axi al images are supplemented with 3D reconstructions and MIP images which were post-processed at an in dependent workstation. NASCET criteria used. Contrast used:65 ml mL of Isovue 370 with IV Contrast, Oral contrast used: None. CT DLP: 503.8 mGycm, Automated exposure control for dose reduction was used. FINDINGS: CTA HEAD: No evidence of acute intracranial hemorrhage, mass effect, or midline shift. The ventricles, sulci, a nd cisterns are unremarkable. Vertebral arteries: The vertebral arteries are patent. Vertebral artery dominance: Codominant Basilar artery: The basilar artery is intact. The basilar artery bifurcation is normal. Internal Carotid arteries: The cervical, petrous, cavernous and supraclinoid segments are normal. BRITT: Patent with no evidence of aneurysm. ACOM: Present without evidence of aneurysm. MCA: Patent with no evidence of aneurysm. SORTING MACHINE ATTENDANT: Patent with no evidence of aneurysm. PCOM: Hypoplastic bilaterally. Dural sinuses: Patent. CTA NECK: Right Carotid System: The common carotid artery and external carotid artery are patent. The carotid bifurcation demonstrate s no evidence of hemodynamically significant stenosis. The remaining portions of the internal carotid artery demonstrate normal size without significant narrowing. Left Carotid System: The common carotid artery and external carotid artery are patent. The carotid bifurcation demonstrate s no evidence of hemodynamically significant stenosis. The remaining portions of the internal carotid artery demonstrate normal size without significant narrowing. Vertebral arteries are patent without evidence hemodynamically significant stenosis. There is a three-vessel aortic arch. The origins of the great vessels are patent. No evidence of hemo dynamically significant stenosis. Upper thorax: IMPRESSION: 1. No evidence of dissection of the cervical internal carotid arteries or vertebral arteries. 2. No any evidence of significant stenosis at the carotid bifurcations. 3. No evidence of intracranial high-grade stenosis or intracranial aneurysm. *Consider MRI for further evaluation if there is continued clinical concern for acute ischemia. [facility], , 02/18/2025 6:28 PM
[2025-02-18] MEDS: KETOROLAC 15 MG/ML 1 ML VIAL IVP STA (18:57)
[2025-02-18] MEDS: SODIUM CHLORIDE 0.9% 1,000 ML IV ONE (18:58)
[2025-02-18] MEDS: LABETALOL 5 MG/ML VIAL MDV IVP STA ×2 (20:20→21:17)
[2025-02-18] MEDS: MORPHINE SULFATE 2 MG/ML SYRINGE IVP STA (21:16)
[2025-02-18] MEDS: ONDANSETRON 4 MG/2 ML VIAL IVP STA (21:16)
[2025-02-18] MEDS ORDERED: NALOXONE 0.4 MG/ML 1 ML VIAL IV PRN (21:37)
[2025-02-18] MEDS ORDERED: CALCIUM CARBONATE 500 MG CHEWABLE PO PRN (21:37)
[2025-02-18] MEDS ORDERED: MORPHINE SULFATE 4 MG/ML SYRINGE IV PRN (21:37)
[2025-02-18] MEDS ORDERED: MAG HYDROX/AL HYDROX/SIMETH 30 ML CUP PO PRN (21:37)
[2025-02-18] MEDS: SODIUM CHLORIDE 0.9% 1,000 ML IV SCH (21:50)
[2025-02-19] MEDS: hydrALAZINE HCL 20 MG/ML 1 ML VIAL IVP PRN (02:45)
[2025-02-19] MEDS: ACETAMINOPHEN TAB 325 MG TAB PO PRN (05:49)
[2025-02-19 08:48] LABS: T4, Free (Free Thyroxine) 2.03 ng/dL (0.78-2.19)
[2025-02-19] MEDS: LOSARTAN 25 MG TAB PO SCH (08:48)
[2025-02-19] MEDS: FAMOTIDINE 20 MG TAB PO SCH (08:48)
[2025-02-19] MEDS: hydroCHLOROthiazide 25 MG TAB PO SCH (12:58)
--- NOTE | 2025-02-19 14:30 | XR ---
EXAMINATION TYPE: XR chest 2V DATE OF EXAM: 02/19/2025 1:31 PM COMPARISON: None CLINICAL INDICATION: Female, 34 years old with history of Hypertensive urgency, , TECHNIQUE: Frontal and lateral views FINDINGS: The cardiomediastinal silhouette, aorta, and pulmonary vasculature are within normal limits. Lungs an d pleural spaces are clear. IMPRESSION: No acute cardiopulmonary process. [facility], Workstation: [facility], 02/19/2025 2:28 PM
--- NOTE | 2025-02-19 15:04 | P.HPIM ---
History of Present Illness H&P Date: 02/19/25 This is a pleasant 34-year-old female with medical history significant for adenomyosis, hysterectomy 5 years ago. Anxiety/never smoker. Patient denies any alcohol or drug use. Patient comes into the hospital after reporting an onset of acute blurry vision since Monday evening at 7 PM. She states that she was seeing blurry vision as well as spots. This progressed into having numbness in her tongue mouth and her thumb and index finger of her bilateral hands. She is not having any focal logical deficits and denies any swallowing difficulties. She does not have any chest pain chest palpitations or shortness of breath. She does not have any history of stroke or atrial fibrillation in the past. she was having photophobia decided to go lay down and go to sleep when she woke she states that she had a headache of 10 out of 10 reported as a migraine and a throbbing sensation in the frontal lobe. This was Monday. She tried [id number] Motrin without any relief of her symptoms. She presented to the ER for further evaluation. Brain CT on admission reveals no acute intrac ranial process. A CT angiography reveals no evidence of dissection of the cervical internal carotid arteries or vertebral arteries. There is no any evidence of significant stenosis at the carotid bifurcations. No evidence of intracranial high-grade stenosis or intracranial aneurysm. An EKG reveals sinus tachycardia heart rate of [address] or T wave changes. While in the ER patient received labetalol x 2 doses. Valium IV, IV Benadryl. Patient also received IV Zofran as well as a 2 L normal saline fluid bolus. She was given a dose of IV hydralazine as well. Her blood pressure on admission was found to be 205/122. Patient was admitted for hypertensive urgency. She was s tarted on losartan 25 mg daily. She did not have much improvement in her blood pressure got down to 171/101. She then was given a dose of oral hydrochlorothiazide. She remains in normal sinus mechanism however her heart rate is going up into the 110s. Blood pressure is 174/104. REVIEW OF SYSTEMS: CONSTITUTIONAL: No fever, no malaise, no fatigue. HEENT: No recent visual problems or hearing problems. Denied any sore throat. CARDIOVASCULAR: No chest pain, orthopnea, PND, no palpitations, no syncope. PULMONARY: No shortness of breath, no cough, no hemoptysis. GASTROINTESTINAL: No diarrhea, no nausea, no vomiting, no abdominal pain. NEUROLOGICAL: no weakness, no numbness. Reports migraine HEMATOLOGICAL: Denies any bleeding or petechiae. GENITOURINARY: Denies any burning micturition, frequency, or urgency. MUSCULOSKELETAL/RHEUMATOLOGICAL: Denies any joint pain, swelling, or any muscle pain. ENDOCRINE: Denies any polyuria or polydipsia. The rest of the 14-point review of systems is negative. PHYSICAL EXAMINATION: GENERAL: The patient is alert and oriented x3, not in any acute distress. Well developed, well nourished. HEENT: Pupils are round and equally reacting to light. EOMI. No scleral icterus. No conjunctival pallor. Normocephalic, atraumatic. No pharyngeal erythema. No thyromegaly. CARDIOVASCULAR: S1 and S2 present. No murmurs, rubs, or gallops. PULMONARY: Chest is clear to auscultation, no wheezing or crackles. ABDOMEN: Soft, nontender, nondistended, normoactive bowel sounds. No palpable organomegaly. MUSCULOSKELETAL: No joint swelling or deformity. EXTREMITIES: No cyanosis, clubbing, or pedal edema. NEUROLOGICAL: Gross neurological examination did not reveal any focal deficits. SKIN: No rashes. Assessment and plan Hypertensive urgency on admission Migraine headache due to the elevated blood pressure Paresthesias likely related to the hypertensive urgency Leukocytosis reactive Subclinical hypothyroidism will repeat on an outpatient basis Obesity GI prophylaxis Full code Plan Patient received a 25 mg dose of losartan earlier this morning we will increase it up to 50 mg daily and give a second dose of losartan this afternoon Patient also received a 25 mg dose of oral hydrochlorothiazide Continue cardiac telemetry Check a chest x-ray Continue pain medication for the migraine IV Toradol has been added Antiemetics as needed The impression and plan of care has been dictated by Kathi Murrell Nurse Practitioner as directed. Dr. Leilani MD I have performed a history and physical examination and medical decision making of this patient, discussed the same with the dictator, and agree with the dictators assessment and plan as written, documented as a scribe. Based on total visit time, I have performed more than 50% of this visit. Past Medical History Past Medical History: No Reported History Additional Past Medical History / Comment(s): ADENOMYOSIS. History of Any Multi-Drug Resistant Organisms: None Reported Past Surgical History: Section, Hysterectomy, Uterine Ablation Additional Past Surgical History / Comment(s): D & C Past Anesthesia/Blood Transfusion Reactions: Postoperative Nausea & Vomiting (PONV) Past Psychological History: Anxiety Smoking Status: Never smoker Past Alcohol Use History: None Reported Past Drug Use History: None Reported - Past Family History Mother History Unknown: Yes Family Medical History: No Reported History Medications and Allergies Home Medications Medication Instructions Recorded Confirmed Type No Known Home Medications 02/18/25 02/18/25 History Allergies Allergy/AdvReac Type Severity Reaction Status Date / Time No Known Allergies Allergy Verified 02/18/25 17:29 Physical Exam Vitals: Vital Signs Temp Pulse Pulse Resp BP BP Pulse Ox 02/19/25 14:34 98.4 F 119 H 16 174/104 98 02/19/25 11:39 84 16 171/101 99 02/19/25 07:00 97.8 F 75 16 169/99 95 02/19/25 03:20 149/89 02/19/25 02:00 16 02/19/25 01:58 98.2 F 78 16 178/117 96 02/19/25 01:29 97.4 F L 81 16 136/83 96 02/19/25 00:27 80 16 141/83 96 02/18/25 23:02 78 18 144/90 96 02/18/25 22:26 97.8 F 77 18 175/111 98 02/18/25 20:25 88 20 185/111 99 02/18/25 17:41 94 18 195/126 100 02/18/25 16:05 98.6 F 123 H 22 205/122 99 Intake and Output 02/18/25 02/19/25 02/19/25 22:59 06:59 14:59 Intake Total 236 Balance 236 Intake: Oral 236 Other: # Voids 3 Weight 81.647 kg Results CBC & Chem 7: 02/18/25 17:25 02/18/25 17:25 Labs: Abnormal Lab Results - Last 24 Hours (Table) 02/18/25 02/19/25 Range/Units 17:25 17:25 WBC 10.16 H (4.50-10.00) 10*3/uL RBC 5.52 H (4.10-5.20) 10*6/uL Hgb 16.6 H (12.0-15.0) g/dL Hct 47.2 H (37.2-46.3) % Eosinophils # 0.47 H (0.04-0.35) 10*3/uL Basophils # 0.11 H (0.00-0.10) 10*3/uL TSH 0.450 L (0.465-4.680) mIU/L Thrombosis Risk Factor Assmnt - Choose All That Apply Any of the Below Risk Factors Present?: No Other Risk Factors: No Other congenital or acquired thrombophilia - If yes, enter type in comment: No Thrombosis Risk Factor Assessment Level: Very Low Risk Assessment and Plan Time with Patient: Less than 30
[2025-02-19] MEDS: KETOROLAC 15 MG/ML 1 ML VIAL IVP PRN (16:03)
[2025-02-19] MEDS: LOSARTAN 25 MG TAB PO STA (16:04)
[2025-02-19] MEDS: METOPROLOL TARTRATE 25 MG TAB PO STA (17:51)
[2025-02-20] MEDS: LOSARTAN 50 MG TAB PO SCH ×2 (08:14→20:34)
[2025-02-20 08:20] LABS: Basophils # (A) 0.14 X 10*3/uL (0.00-0.10); Eosinophils # (A) 0.89 X 10*3/uL (0.04-0.35); Eosinophils % (A) 6.6 %; HCT 43.9 % (37.2-46.3); HGB 14.7 g/dL (12.0-15.0); Lymphocytes # (A) 2.11 X 10*3/uL (0.90-5.00); Lymphocytes % (A) 15.7 %; MCH 29.5 pg (27.0-32.0); MCHC 33.5 g/dL (32.0-37.0); MCV 88.2 FL (80.0-97.0); Mean Platelet Volume 11.5 FL (9.5-12.2); Monocytes # (A) 0.96 X 10*3/uL (0.20-1.00); Monocytes % (A) 7.2 %; NRBC Per 100 WBC 0 X 10*3/uL (0.00-0.01); Neutrophils # (A) 9.26 X 10*3/uL (1.80-7.70); Neutrophils % (A) 69.2 %; Platelet Count 344 X 10*3/uL (140-440); RBC 4.98 X 10*6/uL (4.10-5.20); RDW 13.3 % (11.5-14.5)
[2025-02-20] MEDS: METOPROLOL TARTRATE 25 MG TAB PO SCH (09:49)
[2025-02-20] MEDS: traMADol 50 MG TAB PO PRN (20:34)
--- NOTE | 2025-02-20 21:39 | P.PN ---
Subjective Progress Note Date: 02/20/25 This is a pleasant 34-year-old female with medical history significant for adenomyosis, hysterectomy 5 years ago. Anxiety/never smoker. Patient denies any alcohol or drug use. Patient comes into the hospital after reporting an onset of acute blurry vision since Monday evening at 7 PM. She states that she was seeing blurry vision as well as spots. This progressed into having numbness in her tongue mouth and her thumb and index finger of her bilateral hands. She is not having any focal logical deficits and denies any swallowing difficulties. She does not have any chest pain chest palpitations or shortness of breath. She does not have any history of stroke or atrial fibrillation in the past. she was having photophobia decided to go lay down and go to sleep when she woke she states that she had a headache of 10 out of 10 reported as a migraine and a throbbing sensation in the frontal lobe. This was Monday. She tried [id number] Motrin without any relief of her symptoms. She presented to the ER for further evaluation. Brain CT on admission reveals no acute intracranial process. A CT angiography reveals no evidence of dissection of the cervical internal carotid arteries or vertebral arteries. There is no any evidence of significant stenosis at the carotid bifurcations. No evidence of intracranial high-grade stenosis or intracranial aneurysm. An EKG reveals sinus tachycardia heart rate of [address] or T wave changes. While in the ER patient received labetalol x 2 doses. Valium IV, IV Benadryl. Patient also received IV Zofran as well as a 2 L normal saline fluid bolus. She was given a dose of IV hydralazine as well. Her blood pressure on admission was found to be 205/122. Patient was admitted for hypertensive urgency. She was started on losartan 25 mg daily. She did not have much improvement in her blood pressure got down to 171/101. She then was given a dose of oral hydrochlorothiazide. She remains in normal sinus mechanism however her heart rate is going up into the 110s. Blood pressure is 174/104. 02/21/2024 Patient is evaluated today in follow up. Blood pressure did come down to 131/76 overnight and then back up to 172/111 this AM. When blood pressure is better the headache is better. Currently a 3/10. States it is throbbing like sensation. The IV toradol did help some. Blood pressure this afternoon remains elevated. No chest pain, chest pressure or palpitations. Patient is currently on combination of losartan 50 mg daily, hydrochlorothiazide 25 mg daily and metoprolol 25 mg twice daily. Remains afebrile and on room air. REVIEW OF SYSTEMS: CONSTITUTIONAL: No fever, no malaise, no fatigue. HEENT: No recent visual problems or hearing problems. Denied any sore throat. CARDIOVASCULAR: No chest pain, orthopnea, PND, no palpitations, no syncope. PULMONARY: No shortness of breath, no cough, no hemoptysis. GASTROINTESTINAL: No diarrhea, no nausea, no vomiting, no abdominal pain. NEUROLOGICAL: no weakness, no numbness. Reports front headache 01/13 PHYSICAL EXAMINATION: GENERAL: The patient is alert and oriented x3, not in any acute distress. Well developed, well nourished. HEENT: Pupils are round and equally reacting to light. EOMI. No scleral icterus. No conjunctival pallor. Normocephalic, atraumatic. No pharyngeal erythema. No thyromegaly. CARDIOVASCULAR: S1 and S2 present. No murmurs, rubs, or gallops. PULMONARY: Chest is clear to auscultation, no wheezing or crackles. ABDOMEN: Soft, nontender, nondistended, normoactive bowel sounds. No palpable organomegaly. MUSCULOSKELETAL: No joint swelling or deformity. EXTREMITIES: No cyanosis, clubbing, or pedal edema. NEUROLOGICAL: Gross neurological examination did not reveal any focal deficits. SKIN: No rashes. Assessment and plan Hypertensive urgency on admission and blood pressure remains uncontrolled. Migraine headache due to the elevated blood pressure Paresthesias likely related to the hypertensive urgency Leukocytosis reactive Subclinical hypothyroidism will repeat on an outpatient basis Obesity GI prophylaxis Full code Plan continue current cardiac medications and increase losartan to 50 mg twice daily. Continue cardiac telemetry Continue pain medication for the migraine IV Toradol has been added Antiemetics as needed The impression and plan of care has been dictated by Kathi Murrell, Nurse Practitioner as directed. Dr. Leilani MD I have performed a history and physical examination and medical decision making of this patient, discussed the same with the dictator, and agree with the dictators assessment and plan as written, documented as a scribe. Based on total visit time, I have performed more than 50% of this visit. Objective - Vital Signs Vital signs: Vital Signs Temp 98.0 F 02/20/25 14:49 Pulse 76 02/20/25 14:49 Resp 17 02/20/25 14:49 BP 176/114 02/20/25 14:49 Pulse Ox 98 02/20/25 14:49 FiO2 Intake & Output 02/20/25 02/20/25 02/21/25 06:59 18:59 06:59 Other: Voiding Method Toilet # Voids 2 1 - Labs CBC & Chem 7: 02/20/25 05:14 02/18/25 17:25 Labs: Abnormal Lab Results - Last 24 Hours (Table) 02/20/25 Range/Units 05:14 WBC 13.40 H (4.50-10.00) X 10*3/uL Neutrophils # 9.26 H (1.80-7.70) X 10*3/uL Eosinophils # 0.89 H (0.04-0.35) X 10*3/uL Basophils # 0.14 H (0.00-0.10) X 10*3/uL Assessment and Plan Time with Patient: Less than 30
[2025-02-21] MEDS: LOSARTAN 25 MG TAB PO SCH (08:28)
[2025-02-21] MEDS: ONDANSETRON 4 MG/2 ML VIAL IVP PRN (08:53)
[2025-02-21] MEDS: LOSARTAN 25 MG TAB PO STA (10:41)
--- NOTE | 2025-02-21 13:20 | CA ---
Transthoracic Echo Report Name: Chandrika Abreu Age: 34 Gender: F : 1990 Exam Date: 02/21/2025 11:14 Exam Location: [facility] Ht (in): 60 Wt (lb): 180 Ordering Physician: Latasha Kemp Attending/Referring Phys: Director Speech Ai Royal RDCS Procedure CPT: Indications: htn, ankle edema Cardiac Hx: Technical Quality: Fair Contrast 1: Definity Total Dose (mL): 2 Contrast 2: Total Dose (mL): MEASUREMENTS (Male / Female) Normal Values 2D ECHO LV Diastolic Diameter PLAX 5.0 cm 4.2 - 5.9 / 3.9 - 5.3 cm LV Systolic Diameter PLAX 2.7 cm IVS Diastolic Thickness 1.0 cm 0.6 - 1.0 / 0.6 - 0.9 cm LVPW Diastolic Thickness 1.0 cm 0.6 - 1.0 / 0.6 - 0.9 cm LV Relative Wall Thickness 0.4 RV Internal Dim ED PLAX 2.3 cm LA Systolic Diameter LX 3.4 cm 3.0 - 4.0 / 2.7 - 3.8 cm LA Volume 55.5 cm??? 18 - 58 / 22 - 52 cm??? LA Volume Index 29.2 cm???/m??? 16 - 28 cm???/m??? M-MODE Aortic Root Diameter MM 2.9 cm LA Systolic Diameter MM 3.3 cm LA Ao Ratio MM 1.1 AV Cusp Separation MM 2.1 cm DOPPLER MV Area PHT 2.6 cm??? Mitral E Point Velocity 61.3 cm/s Mitral A Point Velocity 56.9 cm/s Mitral E to A Ratio 1.1 MV Deceleration Time 287.5 ms FINDINGS Left Ventricle Left ventricular ejection fraction is estimated at 35-40 %. Mildly increased septal wall thickness. Mildly increased posterior wall thickness. Left ventricular cavity size normal. Moderate reduced global left ventricular systolic function. Right Ventricle Normal right ventricular size and function. Unable to estimate the right ventricular systolic pressure. Right Atrium Normal right atrial size. Left Atrium Mildly increased left atrial volume. Mitral Valve Structurally normal mitral valve. Trace mitral regurgitation. No mitral stenosis. Aortic Valve Trileaflet aortic valve. No aortic valve stenosis or regurgitation. Tricuspid Valve Structurally normal tricuspid valve. Trace tricuspid regurgitation. No tricuspid stenosis. Pulmonic Valve Structurally normal pulmonic valve. No pulmonic stenosis. Trace pulmonic regurgitation. Pericardium No pericardial or pleural effusion. Aorta Normal size aortic root and proximal ascending aorta. CONCLUSIONS LVEF 35 to 40% Moderately reduced global systolic function Mild left atrial dilatation No significant valve dysfunction Previewed by: Dr Lorenzo Benítez (Electronically Signed) Final Date: 21 February 2025 13:19
--- NOTE | 2025-02-21 15:25 | P.PN ---
Subjective Progress Note Date: 02/21/25 This is a pleasant 34-year-old female with medical history significant for adenomyosis, hysterectomy 5 years ago. Anxiety/never smoker. Patient denies any alcohol or drug use. Patient comes into the hospital after reporting an onset of acute blurry vision since Monday evening at 7 PM. She states that she was seeing blurry vision as well as spots. This progressed into having numbness in her tongue mouth and her thumb and index finger of her bilateral hands. She is not having any focal logical deficits and denies any swallowing difficulties. She does not have any chest pain chest palpitations or shortness of breath. She does not have any history of stroke or atrial fibrillation in the past. she was having photophobia decided to go lay down and go to sleep when she woke she states that she had a headache of 10 out of 10 reported as a migraine and a throbbing sensation in the frontal lobe. This was Monday. She tried [id number] Motrin without any relief of her symptoms. She presented to the ER for further evaluation. Brain CT on admission reveals no acute intracranial process. A CT angiography reveals no evidence of dissection of the cervical internal carotid arteries or vertebral arteries. There is no any evidence of significant stenosis at the carotid bifurcations. No evidence of intracranial high-grade stenosis or intracranial aneurysm. An EKG reveals sinus tachycardia heart rate of [address] or T wave changes. While in the ER patient received labetalol x 2 doses. Valium IV, IV Benadryl. Patient also received IV Zofran as well as a 2 L normal saline fluid bolus. She was given a dose of IV hydralazine as well. Her blood pressure on admission was found to be 205/122. Patient was admitted for hypertensive urgency. She was started on losartan 25 mg daily. She did not have much improvement in her blood pressure got down to 171/101. She then was given a dose of oral hydrochlorothiazide. She remains in normal sinus mechanism however her heart rate is going up into the 110s. Blood pressure is 174/104. 02/20/2025 Patient is evaluated today in follow up. Blood pressure did come down to 131/76 overnight and then back up to 172/111 this AM. When blood pressure is better the headache is better. Currently a 3/10. States it is throbbing like sensation. The IV toradol did help some. Blood pressure this afternoon remains elevated. No chest pain, chest pressure or palpitations. Patient is currently on combination of losartan 50 mg daily, hydrochlorothiazide 25 mg daily and metoprolol 25 mg twice daily. Remains afebrile and on room air. 02/21/2025 Patient evaluated today in follow up. Headache persists. Patient has felt hot/cold flashes overnight. Blood pressure remains elevated at 151/90 today. Echocardiogram comes back revealing an EF 35-40% with moderately reduced global systolic function. Mild left atrial dilatation. No significant valve dysfunction. Continues on combination of losartan 50 mg po daily, hydrochl orothiazide 25 mg daily, and metoprolol 25 mg twice daily. Patient reporting mild ankle edema when she is dependent. REVIEW OF SYSTEMS: CONSTITUTIONAL: No fever, no malaise, no fatigue. HEENT: No recent visual problems or hearing problems. Denied any sore throat. CARDIOVASCULAR: No chest pain, orthopnea, PND, no palpitations, no syncope. PULMONARY: No shortness of breath, no cough, no hemoptysis. GASTROINTESTINAL: No diarrhea, no nausea, no vomiting, no abdominal pain. NEUROLOGICAL: no weakness, no numbness. Reports front headache 01/13 PHYSICAL EXAMINATION: GENERAL: The patient is alert and oriented x3, not in any acute distress. Well developed, well nourished. HEENT: Pupils are round and equally reacting to light. EOMI. No scleral icterus. No conjunctival pallor. Normocephalic, atraumatic. No pharyngeal erythema. No thyromegaly. CARDIOVASCULAR: S1 and S2 present. No murmurs, rubs, or gallops. PULMONARY: Chest is clear to auscultation, no wheezing or crackles. ABDOMEN: Soft, nontender, nondistended, normoactive bowel sounds. No palpable organomegaly. MUSCULOSKELETAL: No joint swelling or deformity. EXTREMITIES: No cyanosis, clubbing, or pedal edema. NEUROLOGICAL: Gross neurological examination did not reveal any focal deficits. SKIN: No rashes. Assessment and plan Hypertensive urgency on admission and blood pressure remains uncontrolled. Migraine headache due to the elevated blood pressure Paresthesias likely related to the hypertensive urgency Leukocytosis reactive Subclinical hypothyroidism will repeat on an outpatient basis Obesity GI prophylaxis Full code Plan continue current cardiac medications Continue cardiac telemetry Continue pain medication for the migraine IV Toradol has been added Antiemetics as needed Consult cardiology due to the decreased EF and further recommendations pending. Check lipid panel. Check inflammatory marker ESR, CRP The impression and plan of care has been dictated by Kathi Murrell, Nurse Practitioner as directed. Dr. Leilani MD I have performed a history and physical examination and medical decision making of this patient, discussed the same with the dictator, and agree with the dictators assessment and plan as written, documented as a scribe. Based on total visit time, I have performed more than 50% of this visit. Objective - Vital Signs Vital signs: Vital Signs Temp 97.8 F 02/21/25 15:00 Pulse 109 H 02/21/25 15:00 Resp 14 02/21/25 15:00 BP 146/76 02/21/25 15:00 Pulse Ox 98 02/21/25 15:00 FiO2 Intake & Output 02/20/25 02/21/25 02/21/25 18:59 06:59 18:59 Other: Voiding Method Toilet # Voids 1 2 3 - Labs CBC & Chem 7: 02/20/25 05:14 02/18/25 17:25 Assessment and Plan Time with Patient: Less than 30
[2025-02-22] MEDS: LOSARTAN 50 MG TAB PO SCH (09:11)
[2025-02-22 10:04] LABS: Blood Urea Nitrogen 23.4 mg/dL (9.0-27.0); Carbon Dioxide 19.8 mmol/L (21.6-31.8); Chloride 105 mmol/L (96-109); Chol/HDL Ratio 5.78 Ratio; Glucose 88 mg/dL (70-110); Potassium 4.3 mmol/L (3.5-5.5); Sodium 139 mmol/L (135-145)
[2025-02-22 10:21] LABS: Basophils # (A) 0.12 X 10*3/uL (0.00-0.10); Basophils % (A) 1.1 %; Eosinophils # (A) 0.69 X 10*3/uL (0.04-0.35); Eosinophils % (A) 6.1 %; HGB 14.8 g/dL (12.0-15.0); Lymphocytes % (A) 30.8 %; MCH 29.6 pg (27.0-32.0); MCHC 32.9 g/dL (32.0-37.0); Mean Platelet Volume 11.3 FL (9.5-12.2); Monocytes % (A) 7.9 %; NRBC Per 100 WBC 0 X 10*3/uL (0.00-0.01); Neutrophils # (A) 6.14 X 10*3/uL (1.80-7.70); Neutrophils % (A) 53.8 %; Platelet Count 347 X 10*3/uL (140-440); RDW 13.2 % (11.5-14.5); WBC 11.38 X 10*3/uL (4.50-10.00)
--- NOTE | 2025-02-22 11:05 | P.CRDCN ---
History of Present Illness Consult date: 02/22/25 Reason for Consult (text): Acute CHF, EF 35 to 40%. History of present illness: This is a 34-year-old female with past medical history of adenomyosis status post hysterectomy, anxiety. We have been asked to evaluate the patient for acute CHF, EF 35 to 40%. Patient presented to the hospital due to blurred vision that started on Monday and then developed numbness in the tongue and mouth area as well as thumb and index fingers on both hands. She also had symptoms of photophobia and migraine headache. Symptoms worsened the next day and she called her to come into the hospital She presented with a blood pressure of 205/122. She has been started on hydrochlorothiazide, losartan and Lopressor and blood pressure is now 134/83, heart rate is 75-100, pulse ox 98% on room air. Patient has been afebrile. Patient is a non-smoker, no alcohol use or illicit drug use. She continues to have headaches finally improved last pm. She denies history of hypertension and has always normal at her doctor's office. She also complains of lower extremy edema for the past 3 weeks. The high blood pressure seems to correlate with severity of headaches. She can walk up 3 flights of steps and does exercise on the treadmill and denies chest pain. 3 flights of stairs does give her SCHMIDT. Dr. Bejarano reviewed results of echo with the patient and her . Most likely the reading of EF 35 to 40% may be an overestimation and more likely 45% Recommendation is to repeat this at a later time. -EKG: Sinus tachycardia 102 bpm -Chest x-ray: No acute process. -CT brain: No acute process. -CTA chest: No evidence of dissection of the cervical internal carotid arteries or vertebral arteries. No significant stenosis of the carotid bifurcations. No evidence of intracranial high-grade stenosis or intracranial aneurysm. -Echocardiogram performed 02/21/2025 revealed EF of 35 to 40%, moderately reduced global systolic function. Mild left atrial dilatation. No significant valve dysfunction. -Laboratory studies: WBC 13.4, hemoglobin 14.7. D-dimer 0.31 CMP within normal limits. Troponin negative x 1. TSH 0.45 with normal free T4 of 2.03. C- reactive protein 1.0. Urinalysis negative. proBNP 315. A1c 5.2 -Home cardiac medications: None Review Of Systems: At the time of my exam: CONSTITUTIONAL: Denies fever or chills. HEENT: Denies blurred vision, vision changes, or eye pain. Denies hemoptysis CARDIOVASCULAR: Denies chest pain. Denies orthopnea. Denies PND. Denies palpitations RESPIRATORY: Denies shortness of breath. GASTROINTESTINAL: Denies abdominal pain. Denies nausea or vomiting. HEMATOLOGIC: Denies bleeding disorders. GENITOURINARY: Denies any blood in urine. SKIN: Denies puritis. Denies rash. Physical examination: Gen: This is a 34-year-old female in no acute distress. VS: reviewed HEENT: Head is atraumatic, normocephalic. Pupils equal, round. Sclerae is anicteric. NECK: Supple. No JVD. LUNGS: Clear to auscultation. No wheezes or rhonchi. No intercostal retractions. HEART: Regular rate and rhythm. No murmur. ABDOMEN: Soft No tenderness. EXTREMITIES: No pedal edema. No calf tenderness. NEUROLOGICAL: Patient is awake, alert and oriented x3. Assessment: Hypertensive urgency, improved Headache, numbness, blurred vision, possibly due to posterior reversible encephalopathy syndrome Cardiomyopathy unknown if ischemic or nonischemic, EF 35 to 40%, more likely 45% Plan: Continue current cardiac medications: Hydrochlorothiazide 25 mg daily, losartan 50 mg daily, Lopressor 25 mg twice daily Obtain renin, aldosterone, cortisol, metanephrine, 1 troponin If blood pressure and headache control later today, patient is cleared for discharge from cardiology. Recommend follow up in the office with Dr. Bejarano and a repeat echocardiogram and further work up will be done as an outpatient. Thank you kindly for this consultation. Nurse practitioner note has been reviewed, I agree with documented findings and plan of care. Patient was seen and examined. Past Medical History Past Medical History: No Reported History Additional Past Medical History / Comment(s): ADENOMYOSIS. History of Any Multi-Drug Resistant Organisms: None Reported Past Surgical History: Section, Hysterectomy, Uterine Ablation Additional Past Surgical History / Comment(s): D & C Past Anesthesia/Blood Transfusion Reactions: Postoperative Nausea & Vomiting (PONV) Past Psychological History: Anxiety Smoking Status: Never smoker Past Alcohol Use History: None Reported Past Drug Use History: None Reported - Past Family History Mother History Unknown: Yes Family Medical History: No Reported History Medications and Allergies Home Medications Medication Instructions Recorded Confirmed Type No Known Home Medications 02/18/25 02/18/25 History Allergies Allergy/AdvReac Type Severity Reaction Status Date / Time No Known Allergies Allergy Verified 02/18/25 17:29 Physical Exam Vitals: Vital Signs Temp Pulse Pulse Pulse Pulse Pulse Resp 02/22/25 07:27 98.3 F 75 101 H 79 16 02/22/25 00:06 98 F 85 18 02/21/25 19:05 98.3 F 111 H 18 02/21/25 15:00 97.8 F 109 H 14 02/21/25 09:36 02/21/25 08:47 97.8 F 98 16 02/21/25 08:40 98 16 BP BP BP BP Pulse Ox 02/22/25 07:27 134/83 147/85 127/84 98 02/22/25 00:06 112/71 98 02/21/25 19:05 178/100 100 02/21/25 15:00 146/76 98 02/21/25 09:36 173/94 151/90 02/21/25 08:47 150/84 97 02/21/25 08:40 Intake and Output 02/21/25 02/22/25 02/22/25 22:59 06:59 14:59 Other: # Voids 1 2 # Bowel Movements 1 Results 02/22/25 03:11 02/22/25 03:11 Current Medications Generic Name Dose Route Start Last Admin Trade Name Freq PRN Reason Stop Dose Admin Acetaminophen 650 mg 02/19/25 02:00 02/19/25 05:49 Acetaminophen Tab 325 Mg Tab PO 650 mg Q6HR PRN Administration Mild Pain or Fever > 100.5 Al Hydroxide/Mg Hydroxide 15 ml 02/18/25 21:37 Mag Hydrox/Al Hydrox/Simeth 30 Ml Cup PO Q6HR PRN Indigestion Calcium Carbonate/Glycine 1,000 mg 02/18/25 21:37 Calcium Carbonate 500 Mg Chewable PO Q4HR PRN Dyspepsia Famotidine 20 mg 02/19/25 09:00 02/21/25 19:44 Famotidine 20 Mg Tab PO 20 mg BID TENA Administration Hydrochlorothiazide 25 mg 02/19/25 12:30 02/21/25 08:30 Hydrochlorothiazide 25 Mg Tab PO 25 mg DAILY TENA Administration Ketorolac Tromethamine 15 mg 02/19/25 15:01 02/19/25 16:03 Ketorolac 15 Mg/Ml 1 Ml Vial IVP 02/24/25 15:01 15 mg Q6HR PRN Administration headache Losartan Potassium 50 mg 02/22/25 09:00 Losartan 50 Mg Tab PO DAILY TENA Metoprolol Tartrate 25 mg 02/20/25 09:45 02/21/25 19:45 Metoprolol Tartrate 25 Mg Tab PO 25 mg BID TENA Administration Naloxone HCl 0.2 mg 02/18/25 21:37 Naloxone 0.4 Mg/Ml 1 Ml Vial IV Q2M PRN Opioid Reversal Ondansetron HCl 4 mg 02/18/25 21:37 02/21/25 08:53 Ondansetron 4 Mg/2 Ml Vial IVP 4 mg Q8HR PRN Administration Nausea And Vomiting Tramadol HCl 50 mg 02/18/25 21:37 02/21/25 10:45 Tramadol 50 Mg Tab PO 50 mg Q6H PRN Administration Moderate Pain (Scale 4 to 6) Intake and Output 02/21/25 02/22/25 02/22/25 22:59 06:59 14:59 Other: # Voids 1 2 # Bowel Movements 1 02/20/25 05:14 02/18/25 17:25
--- NOTE | 2025-02-22 15:23 | P.PN ---
Subjective Interval History: This is a pleasant 34-year-old female with medical history significant for adenomyosis, hysterectomy 5 years ago. Anxiety/never smoker. Patient denies any alcohol or drug use. Patient comes into the hospital after reporting an onset of acute blurry vision since Monday evening at 7 PM. She states that she was seeing blurry vision as well as spots. This progressed into having numbness in her tongue mouth and her thumb and index finger of her bilateral hands. She is not having any focal logical deficits and denies any swallowing difficulties. She does not have any chest pain chest palpitations or shortness of breath. She does not have any history of stroke or atrial fibrillation in the past. she was having photophobia decided to go lay down and go to sleep when she woke she states that she had a headache of 10 out of 10 reported as a migraine and a throbbing sensation in the frontal lobe. This was Monday. She tried [id number] Motrin without any relief of her symptoms. She presented to the ER for further evaluation. Brain CT on admission reveals no acute intracranial process. A CT angiography reveals no evidence of dissection of the cervical internal carotid arteries or vertebral arteries. There is no any evidence of significant stenosis at the carotid bifurcations. No evidence of i ntracranial high-grade stenosis or intracranial aneurysm. An EKG reveals sinus tachycardia heart rate of [address] or T wave changes. While in the ER patient received labetalol x 2 doses. Valium IV, IV Benadryl. Patient also received IV Zofran as well as a 2 L normal saline fluid bolus. She was given a dose of IV hydralazine as well. Her blood pressure on admission was found to be 205/122. Patient was admitted for hypertensive urgency. She was started on losartan 25 mg daily. She did not have much improvement in her blood pressure got down to 171/101. She then was given a dose of oral hydrochlorothiazide. She remains in normal sinus mechanism however her heart rate is going up into the 110s. Blood pressure is 174/104. 02/20/2025 Patient is evaluated today in follow up. Blood pressure did come down to 131/76 overnight and then back up to 172/111 this AM. When blood pressure is better the headache is better. Currently a 3/10. States it is throbbing like sensation. The IV toradol did help some. Blood pressure this afternoon remains elevated. No chest pain, chest pressure or palpitations. Patient is currently on combination of losartan 50 mg daily, hydrochlorothiazide 25 mg daily and metoprolol 25 mg twice daily. Remains afebrile and on room air. 02/21/2025 Patient evaluated today in follow up. Headache persists. Patient has felt hot/cold flashes overnight. Blood pressure remains elevated at 151/90 today. Echocardiogram comes back revealing an EF 35-40% with moderately reduced global systolic function. Mild left atrial dilatation. No significant valve dysfunction. Continues on combination of losartan 50 mg po daily, hydrochlorothiazide 25 mg daily, and metoprolol 25 mg twice daily. Patient reporting mild ankle edema when she is dependent. 02/22/25--patient was seen and examined today. Headache is better. Blood pressure better. Patient currently on losartan, hydrochlorothiazide metoprolol. Cardiology following, ordered renin, aldosterone, plasma metanephrines, cortisol. Recommended outpatient follow-up. Assessment and plan: Hypertensive urgency on admission and blood pressure remains uncontrolled. Migraine headache due to the elevated blood pressure Paresthesias likely related to the hypertensive urgency Leukocytosis reactive Subclinical hypothyroidism will repeat on an outpatient basis Obesity GI prophylaxis Full code Cardiology consulted Echocardiogram done which showed EF 35 to 40% with moderately reduced global systolic function. Cardiology consultedrecommended outpatient follow-up, recommended losartan hydrochlorothiazide and metoprolol at discharge. Blood pressure and headache better. Ordered aldosterone renin, plasma metanephrine, cortisol. Monitor vital signs and labs Labs and medication were reviewed. Continue same treatment. Further recommendations as per clinical course of the patient PHYSICAL EXAMINATION: GENERAL: The patient is A&O x3, NAD HEENT: EOMI, Sclerae anicteric, Moist Mucous membranes Neck: Supple, Non tender, No JVD PULMONARY: Equal breath souds B/L, No wheezing, No crackles. CARDIOVASCULAR: S1, S2 present. No murmurs, rubs, or gallops. ABDOMEN: Soft, nontender, nondistended, normoactive bowel sounds. No guarding or rebound tenderness. MUSCULOSKELETAL: No edema, No cyanosis. No clubbing. Normal ROM. Intact peripheral pulses. NEUROLOGICAL: CN 2-12 grossly intact. No FND Skin: No Rash REVIEW OF SYSTEMS: CONSTITUTIONAL: No fever or chills. CARDIOVASCULAR: No chest pain, palpitations or syncope. PULMONARY: No shortness of breath, no cough, sore throat. GASTROINTESTINAL: No nausea, vomiting, diarrhea, abdominal pain. : No Dysuria, urgency, frequency. Extremities: No edema. NEUROLOGICAL: No headaches, no weakness, or numbness Dictation was produced using [employer] dictation software. please excuse any grammatical, word or spelling errors. Objective - Vital Signs Vital signs: Vital Signs Temp 98.3 F 02/22/25 07:27 Pulse 101 H 02/22/25 07:27 Resp 16 02/22/25 07:27 BP 147/85 02/22/25 07:27 Pulse Ox 98 02/22/25 07:27 FiO2 Intake & Output 02/21/25 02/22/25 02/22/25 18:59 06:59 18:59 Other: Voiding Method Toilet # Voids 3 2 # Bowel Movements 1 - Labs CBC & Chem 7: 02/22/25 03:11 02/22/25 03:11 Labs: Abnormal Lab Results - Last 24 Hours (Table) 02/21/25 02/21/25 02/22/25 Range/Units 16:21 16:21 03:11 WBC 11.38 H (4.50-10.00) X 10*3/uL Eosinophils # 0.69 H (0.04-0.35) X 10*3/uL Basophils # 0.12 H (0.00-0.10) X 10*3/uL ESR 21 H (0-20) mm/Hr Carbon Dioxide (21.6-31.8) mmol/L Anion Gap (4.00-12.00) mmol/L BUN/Creatinine Ratio (12.00-20.00) Ratio C-Reactive Protein 1.0 H (<1.0) mg/dL Triglycerides (0.00-149.00) mg/dL Cholesterol (0.00-200.00) mg/dL VLDL Cholesterol, Calc (5.00-40.00) mg/dL HDL Cholesterol (40.00-60.00) mg/dL 02/22/25 Range/Units 03:11 WBC (4.50-10.00) X 10*3/uL Eosinophils # (0.04-0.35) X 10*3/uL Basophils # (0.00-0.10) X 10*3/uL ESR (0-20) mm/Hr Carbon Dioxide 19.8 L (21.6-31.8) mmol/L Anion Gap 14.20 H (4.00-12.00) mmol/L BUN/Creatinine Ratio 26.00 H (12.00-20.00) Ratio C-Reactive Protein (<1.0) mg/dL Triglycerides 206.00 H (0.00-149.00) mg/dL Cholesterol 201.00 H (0.00-200.00) mg/dL VLDL Cholesterol, Calc 41.20 H (5.00-40.00) mg/dL HDL Cholesterol 34.80 L (40.00-60.00) mg/dL
[2025-02-22 15:32] VITALS: RESP 17; TEMP 98.1
[2025-02-22 16:15] VITALS: BP 142/90; PULSE 90
== END 2025-02-22 18:07 | disposition home or self-care (01) | DRG 305 ==
LOC: EC 16:01 → 6NMEDSUR 21:40 → OBSVTOIN 21:41 → 6NMEDSUR 02-19 01:21
PROVIDERS: ADMIT Hospitalist; ATTEND Hospitalist
DX: I16.0 Hypertensive urgency (principal); I42.9 Cardiomyopathy, unspecified; I10 Essential (primary) hypertension; E66.9 Obesity, unspecified; E03.8 Other specified hypothyroidism; I08.1 Rheumatic disorders of both mitral and tricuspid valves; D72.829 Elevated white blood cell count, unspecified; Z79.890 Hormone replacement therapy; G43.909 Migraine, unspecified, not intractable, without status migrainosus; F41.9 Anxiety disorder, unspecified; Z90.710 Acquired absence of both cervix and uterus; Z79.899 Other long term (current) drug therapy; Z68.35 Body mass index [BMI] 35.0-35.9, adult
CPT/HCPCS: 36415; 70450; 70496; 70498; 71046; 80048; 80053; 80061; 81003; 82088; 82533; 83036; 83835; 83880; 84244; 84439; 84443; 84484; 85025; 85379; 85652; 86140; 93005; 93306; 96361; 96365; 96375; 96376; 99291

== ENCOUNTER → 2025-02-28 | Outpatient (CLI) | payer BC | END | disposition home or self-care (01) | LOC: LABWHC1 11:50 | PROVIDERS: ATTEND Internal Medicine | DX: I10 Essential (primary) hypertension (principal) | CPT/HCPCS: 36415; 82088; 83835; 83921; 84244 ==

== ENCOUNTER → 2025-03-07 | Outpatient (CLI) | payer BC ==
--- NOTE | 2025-03-07 09:41 | CT ---
EXAMINATION TYPE: CT angio abdomen DATE OF EXAM: 03/07/2025 9:32 AM COMPARISON: None. CLINICAL INDICATION: Female, 34 years old with history of I10 HTN, high blood pressure. r/o renal art presley stenosis, TECHNIQUE: Axial imaging was performed with sagittal coronal reformats. 3D reconstruction performed o n a separate workstation. IV CONTRAST: without and with IV Contrast, patient injected with 100 ml mL of Isovue 370. (None if em pty) CT DLP: 999 mGycm, Automated exposure control for dose reduction was used. FINDINGS: CONTRAST CT ABDOMEN AND PELVIS ABDOMENAL AORTA: No evidence for abdominal aortic aneurysm. No dissection. Iliac vessels are symmet sophia and patent. LIVER/GB- No significant abnormality is seen. PANCREAS- No significant abnormality is seen. SPLEEN- No significant abnormality is seen. ADRENALS- No significant abnormality is seen. KIDNEYS/BLADDER-nonobstructing calculus right kidney. BOWEL- No Significant abnormality GENITAL ORGANS: No gross abnormality seen. LYMPH NODES- No greater than 1cm abdominal or pelvic lymph nodes areappreciated. OSSEOUS STRUCTURES- No significant abnormality is seen. OTHER- No significant abnormality is seen. IMPRESSION- Normal abdominal aorta and branch vessels. No evidence for aneurysm or stenosis. Nonobstructing right -sided nephrolithiasis. [facility], , 03/07/2025 9:39 AM
== END | disposition home or self-care (01) ==
LOC: RADCTMAIN 08:19
PROVIDERS: ATTEND Internal Medicine
DX: N20.0 Calculus of kidney (principal); I10 Essential (primary) hypertension
CPT/HCPCS: 74175; Q9967

== ENCOUNTER → 2025-03-10 | Outpatient (CLI) | payer BC | END | disposition home or self-care (01) | LOC: LABWHC1 13:39 | PROVIDERS: ATTEND Internal Medicine | DX: I10 Essential (primary) hypertension (principal) | CPT/HCPCS: 36415; 84244 ==

== ENCOUNTER → 2025-03-27 | Outpatient (CLI) | payer BC ==
[2025-03-27 19:36] LABS: HCT 41.5 % (37.2-46.3); HGB 14.3 g/dL (12.0-15.0); MCH 30.1 pg (27.0-32.0); MCHC 34.5 g/dL (32.0-37.0); MCV 87.4 FL (80.0-97.0); Mean Platelet Volume 11.1 FL (9.5-12.2); NRBC Per 100 WBC 0 X 10*3/uL (0.00-0.01); Platelet Count 427 X 10*3/uL (140-440); RBC 4.75 X 10*6/uL (4.10-5.20); RDW 13.2 % (11.5-14.5); WBC 9.51 X 10*3/uL (4.50-10.00)
[2025-03-27 19:43] LABS: Erythrocyte Sedimentation Rate 27 mm/Hr (0-20)
[2025-03-27 20:37] LABS: ALT 29 U/L (8-44); AST 23 U/L (13-35); Albumin 4.2 g/dL (3.8-4.9); Albumin/Globulin Ratio 1.45 Ratio (1.60-3.17); Alkaline Phosphatase 87 U/L (41-126); BUN/Creat Ratio 23.88 Ratio (12.00-20.00); Blood Urea Nitrogen 19.1 mg/dL (9.0-27.0); Calcium 9.8 mg/dL (8.7-10.3); Carbon Dioxide 23.1 mmol/L (21.6-31.8); Chloride 100 mmol/L (96-109); Globulin 2.9 g/dL (1.6-3.3); Glucose 93 mg/dL (70-110); Rheumatoid Factor, Qnt <15 IU/mL (0-15); Sodium 137 mmol/L (135-145); Total Protein 7.1 g/dL (6.2-8.2)
[2025-03-27 21:29] LABS: Cyclic Citrull Pep IgG Unit <1.5 U/mL (<=3.9); Cyclic Citrullinated Pep IgG Negative
== END | disposition home or self-care (01) ==
LOC: LABWHC1 14:07
PROVIDERS: ATTEND Nurse Practitioner Family
DX: M35.9 Systemic involvement of connective tissue, unspecified (principal)
CPT/HCPCS: 36415; 80053; 85027; 85652; 86038; 86140; 86200; 86431

== ENCOUNTER → 2025-04-18 | Outpatient (CLI) | payer BC ==
--- NOTE | 2025-04-18 08:23 | MR ---
EXAMINATION TYPE: MR brain wo/w con DATE OF EXAM: 04/18/2025 7:00 AM COMPARISON: 02/18/2025. CLINICAL INDICATION: Female, 34 years old with history of R51.9 HEADACHE, UNSPECIFIED; PHH, Headaches TECHNIQUE: Multi planar, multi sequence imaging was performed through the brain including: T1, T2, In version recovery, susceptibility weighted imaging and gradient echo imaging and Diffusion weighted im aging. The patient was then given intravenous contrast and multi planar, T1 fat-saturation images wer e obtained. IV Contrast: 8ml mL Gadobutrol FINDINGS: The wahl-white junctions, ventricular system, basal cisterns appear unremarkable. Diffusion-weighted imaging shows no evidence of restricted diffusion to suggest acute/subacute infarct. Intracranial ar terial flow voids are maintained. Midline structures show no abnormality. The susceptibility weighted images do not reveal any evidence for micro-hemorrhage. After administration of gadolinium, no abnor mal enhancement is seen. The bone marrow signal is within normal limits. Paranasal sinuses and mastoid air cells: No significant paranasal sinus disease. Visualized orbits: Orbital contents are intact. IMPRESSION: No evidence of intracranial mass, acute/subacute infarct, or abnormal enhancement. [facility], , 04/18/2025 8:21 AM
== END | disposition home or self-care (01) ==
LOC: RADMRIMAIN 06:03
PROVIDERS: ATTEND Psychiatry & Neurology Vascular Neurology
DX: R51.9 Headache, unspecified (principal)
CPT/HCPCS: 70553; A9585

== ENCOUNTER → 2025-04-24 | Outpatient (CLI) | payer BC | LOC: NEUROMAIN 07:47 | PROVIDERS: ATTEND Psychiatry & Neurology Vascular Neurology | DX: R51.9 Headache, unspecified (principal) | CPT/HCPCS: 95816 ==